=== PATIENT | male | born 1990 | race Caucasian/White ===

== ENCOUNTER → 2021-10-10 | Outpatient (CLI) | payer BC ==
[~2021-10-10] MED LIST: ISOVUE-370 76% 100ML VIAL As Ordered ONE
== END ==
LOC: M RAD 14:35
DX: R91.8 Other nonspecific abnormal finding of lung field (principal); R10.9 Unspecified abdominal pain
CPT/HCPCS: 71250; 74177; Q9967

== ENCOUNTER 2021-12-19 11:11 | Emergency (ER) | payer BC ==
[~2021-12-19] VITALS: Ht 180.3 cm; Wt 105.3 kg
[2021-12-19 15:22] VITALS: BP 134/82
== END 2021-12-19 15:23 | disposition home or self-care (01) ==
LOC: M ED 11:11
DX: S93.401A Sprain of unspecified ligament of right ankle, initial encounter (principal); X50.9XXA Other and unspecified overexertion or strenuous movements or postures, initial encounter; Y92.009 Unspecified place in unspecified non-institutional (private) residence as the place of occurrence of the external cause; Y93.9 Activity, unspecified; Y99.9 Unspecified external cause status; Z88.8 Allergy status to other drugs, medicaments and biological substances

== ENCOUNTER → 2022-05-21 | Outpatient (CLI) | payer BC | LOC: M SOG 15:42 | PROVIDERS: ATTEND Orthopaedic Surgery | DX: M79.645 Pain in left finger(s) (principal) ==